=== PATIENT | female | born 1970 | race African-American/Black ===

== ENCOUNTER 2022-03-05 16:20 | Emergency (ER) | payer OTHER, SELFPAY ==
--- NOTE | ~2022-03-05 | XR_ITS ---
XR knee LT 3V DATE: 03/05/2022 16:49 INDICATION: Patient fell and twisted left knee. TECHNIQUE: AP, lateral, sunrise views COMPARISON: None FINDINGS: There is evidence of prominent distention of suprapatellar bursa suggesting knee joint effu maryan. Consider internal derangement. No fracture or dislocation, periosteal reaction or bone destruct ion is detected. There is minimal periarticular spurring of the patellofemoral and medial compartments. No radiopaque intra-articular loose body or chondrocalcinosis. IMPRESSION: Suggestion of prominent suprapatellar knee joint effusion, without evidence of fracture. Consider internal derangement. Mild osteoarthritis Reviewed, dictated and finalized at location B.
[2022-03-05 16:29] VITALS: BP 159/85; PULSE 85; RESP 18; TEMP 36.8; O2SAT 97
--- NOTE | 2022-03-05 18:38 | ED.LOWEXIN ---
HPI - Extremity Injury (Lower) General Chief Complaint: Extremity Injury, Lower Stated Complaint: left knee injury Time Seen by Provider: 03/05/22 18:01 Source: patient Mode of arrival: wheelchair Limitations: no limitations History of Present Illness HPI Narrative: This is a 51-year-old female that presents to the emergency department after a injury last night. Reports she fell off of a walkie at work. Reports an injury to the left knee. She has been unable to bear weight without pain since. She did not hit her head or lose consciousness. Denies decreased range of motion or numbness. Related Data Allergies Allergy/AdvReac Type Severity Reaction Status Date / Time No Known Allergies Allergy Verified 03/05/22 18:32 Review of Systems Review of Systems: CONSTITUTIONAL: Denies fever MUSCULOSKELETAL: Reports joint pain, and myalgia. NEUROLOGIC: Denies numbness, or weakness. All systems reviewed & are unremarkable except as noted in HPI and below PMFSH Past Medical History Medical History (Updated 03/05/22 @ 19:09 by Richa Ellington PA-C) No active medical problems Social History Social History (Updated 03/05/22 @ 19:06 by Richa Ellington PA-C) Smoking status: Never smoker Exam Narrative: GENERAL: Well-appearing, well-nourished, and in no acute distress. HEAD: Normocephalic, atraumatic. EYES: EOMI. EXTREMITIES: Normal range of motion. No edema or obvious deformity. Normal DP pulse. Normal sensation SKIN: Warm, dry, no rash. NEURO: No focal deficits. Alert and oriented x3. PSYCH: Normal mood and affect Course Vital Signs Vital signs: Vital Signs Temperature 98.3 F 03/05/22 16:29 Pulse Rate 85 03/05/22 16:29 Respiratory Rate 18 03/05/22 16:29 Blood Pressure 159/85 H 03/05/22 16:29 Pulse Oximetry 97 03/05/22 16:29 Oxygen Delivery Room Air 03/05/22 16:29 Temperature 98.3 F 03/05/22 16:29 Pulse Rate 85 03/05/22 16:29 Respiratory Rate 18 03/05/22 16:29 Blood Pressure 159/85 H 03/05/22 16:29 Pulse Oximetry 97 03/05/22 16:29 Oxygen Delivery Room Air 03/05/22 16:29 MDM - Extremity Injury (Lower) MDM Narrative Medical decision making narrative: Patient presents to the emergency department after an injury last night to her left knee. Patient is neurovascularly intact. Left knee x-ray shows a suprapatellar joint effusion without evidence of fracture. Patient was updated on case findings. Placed in a knee immobilizer and given crutches. Will be given orthopedics for follow-up. She was given warnings to return to the ER Imaging Data Radiologist's impression: ITS Impressions Knee X-Ray 03/05/22 16:53 IMPRESSION: Suggestion of prominent suprapatellar knee joint effusion, without evidence of fracture. Consider internal derangement. Mild osteoarthritis Critical Care Time Critical Care Time Critical Care Time: No Discharge Plan Discharge Clinical Impression: Acute internal derangement of knee Qualifiers: Laterality: left Qualified Code(s): M23.92 - Unspecified internal derangement of left knee Patient Disposition: Home, Self-Care Condition: Stable Instructions: Knee Sprain (ED) Additional Instructions: Return to the emergency department if you experience fever, redness and swelling of your leg, numbness, or any other symptoms that are concerning to you Wear knee immobilizer and use crutches. No weight on the affected leg. Ice and elevate extremity. Pain medication as needed and directed. Follow up with orthopedics for further care. Follow-up/Referrals: PHYSICIAN,CONDITIONING YARD SUPERVISOR [Primary Care Provider] - Lew Soria MD [Physician] - 3 Days
[2022-03-05] MEDS: KETOROLAC 30 MG/ML VIAL (*BKC) IM (18:42)
== END 2022-03-05 19:31 | disposition home or self-care (01) ==
PROVIDERS: Emergency Provider Emergency Medicine
DX: M23.92 Unspecified internal derangement of left knee (principal); S89.92XA Unspecified injury of left lower leg, initial encounter; M17.12 Unilateral primary osteoarthritis, left knee; W31.89XA Contact with other specified machinery, initial encounter
CPT/HCPCS: 73562; 96372; 99283; J1885

== ENCOUNTER 2022-07-09 15:32 | Emergency (ER) | payer SELFPAY ==
--- NOTE | ~2022-07-09 | XR_ITS ---
EXAMINATION: XR chest 1V portable DATE: 07/09/2022 15:59 INDICATION: Dizziness. TECHNIQUE: A single frontal view of the chest was obtained. COMPARISON: None. FINDINGS: The chest demonstrates clear lungs without pneumonia, pleural effusion, or pneumothorax. Th e heart size is normal. IMPRESSION: 1. No acute cardiopulmonary disease. Reviewed, dictated and finalized at location A. PORT APPLICATION EXAMINER
--- NOTE | ~2022-07-09 | CT_ITS ---
EXAMINATION: CT brain wo con DATE: 07/09/2022 16:09 INDICATION: Dizziness TECHNIQUE: Computed tomography (CT) of the head was performed without intravenous contrast. Sagittal and coronal reconstructions were performed. The mA was adjusted according to patient size. Iterative reconstruction technique was employed. The dose-length product was 605.33 mGy-cm. COMPARISON: None FINDINGS: No acute intracranial hemorrhage, acute infarction or abnormal extra axial fluid collection. Ventricl es are normal and symmetric. No mass/mass effect. The orbits, paranasal sinuses and mastoid air cells are normal. IMPRESSION: 1. Normal head CT. Reviewed, dictated and finalized at location B. RAL AISLE CASHIER IMPRESSION: 1. Normal head CT.
[2022-07-09 15:37] VITALS: BP 179/91; PULSE 97; RESP 16; TEMP 37.1; O2SAT 99
--- NOTE | 2022-07-09 15:43 | ECG_ITS ---
Measurements Intervals [place] Rate: 66 P: 44 MD: 170 QRS: 2 QRSD: 88 T: 20 QT: 374 QTc: 394 Interpretive Statements SINUS RHYTHM POSSIBLE LEFT ATRIAL ENLARGEMENT DELAYED PRECORDIAL R/S TRANSITION LOW QRS VOLTAGE IN PRECORDIAL LEADS BASELINE ARTIFACT- I, II, III, AVL BORDERLINE ECG NO PREVIOUS ECG AVAILABLE FOR COMPARISON Electronically Signed On 07-09-2022 17:30:47 TECHNICAL MARKETING CONSULTANT by Jair Nickerson D.O.
--- NOTE | 2022-07-09 16:16 | ED.GENADULT ---
HPI - General Adult General Chief complaint: Dizziness Stated complaint: dizzy Time Seen by Provider: 07/09/22 15:39 Source: RN notes reviewed History of Present Illness HPI narrative: Patient presents emergency department from home for dizziness. Patient states dizziness began 3 days ago. States the dizziness is described as a room spinning sensation that is worse whenever she tries to get up and better when she lays down she denies any numbness or tingling in the extremities she denies any vision changes, denies any chest pain shortness of breath abdominal pain nausea vomiting or any other symptoms. States she has not taken anything for the symptoms Related Data Allergies Allergy/AdvReac Type Severity Reaction Status Date / Time No Known Allergies Allergy Verified 03/05/22 18:32 Review of Systems Review of Systems: Gen.: Denies fevers or chills ENT: Denies congestion Respiratory: Denies shortness of breath or cough CV: Denies chest pain or palpitations GI: Denies abdominal pain nausea, emesis or diarrhea Musculoskeletal: Denies back pain or muscle pain Neuro: See HPI Skin: Denies rash Except as documented, all other systems reviewed and negative [facility] Past Medical History Medical History No active medical problems Social History Social History Smoking status: Never smoker Exam Narrative: APPEARANCE: No acute distress, nontoxic, resting in bed HEENT: Normocephalic, atraumatic, OMM, TMs clear bilaterally EYES: PERRL, EOMI RESPIRATORY: No respiratory distress, clear to auscultation bilaterally with no rhonchi wheezing or rales CARDIOVASCULAR: RRR s murmur ABDOMINAL: Soft, nontender, nondistended MUSCULOSKELETAL: Moves all extremities. No clubbing, cyanosis or edema. NEURO: A and O ?3, following commands, speech normal, cranial nerves II through XII grossly intact,muscle strength 5 out of 5 bilateral upper and lower extremities SKIN:: Warm, dry. Normal Color PSYCHIATRIC: Normal affect/mood Course Course Emergency Course: Patient states dizziness has resolved following meclizine able to get up and ambulate in the emergency department no dizziness Discussed with patient results of workup and diagnosis. Discussed need for follow-up with primary care, proper use of medication, and reasons to return to the emergency department. Patient understands and agrees to current treatment plan Vital Signs Vital signs: Vital Signs Temperature 98.7 F 07/09/22 15:37 Pulse Rate 97 07/09/22 15:37 Respiratory Rate 16 07/09/22 15:37 Blood Pressure 179/91 H 07/09/22 15:37 Pulse Oximetry 99 07/09/22 15:37 Temperature 98.7 F 07/09/22 15:37 Pulse Rate 70 07/09/22 17:15 Respiratory Rate 25 H 07/09/22 17:15 Blood Pressure 152/87 H 07/09/22 17:15 Pulse Oximetry 99 07/09/22 15:37 Medical Decision Making MDM Narrative Medical decision making narrative: Patient's vertigo is felt to be likely peripheral in origin. There is no diplopia, dysarthria or dysphagia. Patient's gait is stable and there are no cerebral deficits to exam. Risk factor for central causes of vertigo reviewed. Patient felt likely reasonable for continued outpatient management and risks are felt to outweigh benefits for further imaging studies at this time Vital Signs Vital Signs: Vital Signs Temperature 98.7 F 07/09/22 15:37 Pulse Rate 97 07/09/22 15:37 Respiratory Rate 16 07/09/22 15:37 Blood Pressure 179/91 H 07/09/22 15:37 Pulse Oximetry 99 07/09/22 15:37 Temperature 98.7 F 07/09/22 15:37 Pulse Rate 70 07/09/22 17:15 Respiratory Rate 25 H 07/09/22 17:15 Blood Pressure 152/87 H 07/09/22 17:15 Pulse Oximetry 99 07/09/22 15:37 Lab Data Lab results reviewed: Yes I reviewed the patient's lab results. 07/09/22 16:29 07/09/22 16:29 Labs: Lab Results
[2022-07-09] MEDS: MECLIZINE HCL 25 MG TABLET PO (16:31)
[2022-07-09] MEDS: SODIUM CHLORIDE 0.9% IV 1,000 ML 999 ML IV CONT (16:31)
[2022-07-09 16:35] LABS: Basophils Percent Auto 0.5 % (0.2-1.2); Eosinophils Absolute Auto 0.1 K/mm3 (0-0.3); Eosinophils Percent Auto 2.1 % (0-4.4); Hematocrit 35.4 % (37.0-47.0); Hemoglobin 11.4 g/dL (12.0-15.0); Immature Granulocyte Absolute 0.01 K/mm3 (0.00-0.031); Immature Granulocyte Percent A 0.2 % (0-0.5); Lymphocytes Absolute Auto 3.23 K/mm3 (0.9-3.2); Lymphocytes Percent Auto 55.2 % (18.3-44.2); Mean Corpuscular HGB Conc 32.2 g/dl (32-36); Mean Corpuscular Volume 90.1 fl (80-100); Mean Platelet Volume 9.7 fl (7.4-10.4); Monocytes Absolute Auto 0.4 K/mm3 (0.1-0.6); Monocytes Percent Auto 7.5 % (2.6-8.5); Neutrophils Percent Auto 34.5 % (45.5-73.1); Platelet Count Result 291 k/mm3 (150-375); Red Blood Count 3.93 M/mm3 (4.2-5.4); Red Cell Distribution Width 15.1 % (11.5-14.5); White Blood Count 5.9 K/mm3 (4.5-10.0)
[2022-07-09 16:45] VITALS: BP 159/95; PULSE 74; RESP 23
[2022-07-09 16:45] LABS: Alanine Aminotransferase 21 U/L (6-35); Albumin Level 3.6 g/dL (3.5-5.1); Alkaline Phosphatase 62 U/L (38-126); Anion Gap 6 mmol/L (8-16); Aspartate Amino Transferase 22 U/L (14-36); Bilirubin,Total 0.5 mg/dL (0.2-1.3); Blood Urea Nitrogen 8 mg/dL (7-17); Calcium 9.9 mg/dL (8.4-10.2); Carbon Dioxide 22 mmol/L (22-30); Chloride 112 mmol/L (98-107); Estimated CRCL calculation 96 ml/min; Estimated Glomerular Filt Rate > 60; Glucose 89 mg/dL (65-110); Potassium 3.8 mmol/L (3.4-5.0); Sodium 140 mmol/L (137-145)
[2022-07-09 16:56] LABS: Troponin I < 0.012 ng/mL (0.000-0.034)
[2022-07-09 17:00] VITALS: BP 166/91; PULSE 67; RESP 22
[2022-07-09 17:15] VITALS: BP 152/87; PULSE 70; RESP 25
--- NOTE | 2022-07-09 17:30 | PC.NURSE ---
pt ambulatory without difficulty to the bathroom. states dizziness has improved. gait steady.
--- NOTE | 2022-07-09 17:45 | PC.NURSE ---
pt ambulatory to bathroom without difficulty
[2022-07-09 17:48] LABS: Appearance Urine Slightly Cloudy (Clear); Bilirubin Urine Negative (Negative); Blood Urine 3+ (Negative); Color Urine Yellow (Yellow); Glucose Urine UA Negative (Negative); Ketones Urine Negative (Negative); Leukocyte Esterase Ur Negative LEU/UL (Negative); Nitrate Urine Negative (Negative); Protein Urine Trace mg/dL (Negative); pH Urine 6.5 (5.0-9.0)
[2022-07-09 17:52] LABS: Mucus Urine Rare /lpf; RBC Urine >75 /hpf (0-2); Squamous Epithelial Cell Urine Rare /hpf (Few); WBC Urine 0-3 /hpf
[2022-07-09 18:03] LABS: Add Urine Microscopic? YES
[2022-07-09 18:10] VITALS: BP 102/85; PULSE 73; RESP 16; O2SAT 99
== END 2022-07-09 18:10 | disposition home or self-care (01) ==
PROVIDERS: Emergency Provider Emergency Medicine
DX: H81.10 Benign paroxysmal vertigo, unspecified ear (principal); R94.31 Abnormal electrocardiogram [ECG] [EKG]
CPT/HCPCS: 36415; 70450; 71045; 80053; 81001; 84484; 85025; 93005; 96360; 99284; A9270; J7030

== ENCOUNTER 2023-06-08 00:16 | Day surgery (SDC) | payer OTHER, SELFPAY ==
[2023-05-30 14:29] VITALS: BMI 41.2
--- NOTE | 2023-05-30 14:30 | PC.NURSE ---
Report to the Outpatient Waiting Room, entrance under the green pavilion located off [facility], at time _0800_ on date _[id number]_. Planned Procedure Time: _1000_. Time changes happen often and if your time is changed the preop area will call you the afternoon before. - You and your visitor will be asked to self-screen and do not enter if you have any COVID symptoms. - A mask is optional within the hospital at this time. Patients may have clear liquids (water, carbonated beverages, clear teas, apple juice) until 3 hours prior to surgery with a maximum of 20 ounces. - No food from midnight until time of surgery Take the following medications with a SIP of water the morning of surgery: ___None DO NOT STOP ANY OF YOUR OTHER PRESCRIPTION MEDICATIONS PRIOR TO SURGERY ?EXCEPT THE FOLLOWING Medications to discontinue per physician None Date to take last dose Please no make-up, nail nigerian, hairspray, perfume, deodorant, or body powder the day of surgery. No jewelry (including any body piercings) or valuables the day of surgery, leave them at home. Please take a shower or bath the night before, or the morning of, surgery with an antibacterial soap. Wear comfortable, loose fitting clothing. - Jewelry must be removed prior to entering the operating room. Rings and piercings that are not removed may be cut off. - The hospital will not accept responsibility for valuables. - Please leave all valuables, including medications, at home the day of surgery. If you are going home after surgery, a licensed tow motor driver must drive you home. - NO public transportation without another adult if you receive anesthesia. - We recommend that an adult stay with you for 24 hours following discharge. - We also recommend that you do not drive, make important decision, drink alcoholic beverages, or take any drugs that were not prescribed by your health care provider for at least 24 hours after your discharge time. Follow any additional instructions given to you from your surgeon. If you or anyone in your household have experienced Covid symptoms in the past week, please notify your surgeon or the nurse liaison at the phone number below for possible testing. Telephone instructions given to __Homa_and asked if any additional questions and then verbalized understanding. Patient advised to call surgeon office or pre surgery nurse liaison [phone] if any additional questions.
--- NOTE | 2023-06-07 10:11 | P.HP_ITS ---
H&P: HPI History of Present Illness Date/Time: 06/07/23 10:11 Chief Complaint: Meniscal tear left knee. Narrative: Patient has what appears to be a meniscal tear left knee. It is the joint line she has catching locking and inability fully straighten knee she had an MRI scan that showed a bucket handle tear. But no surgery has been done to date. Review of Systems Musculoskeletal: Musculoskeletal: Reports arthralgias and Reports joint swelling PMFSH Past Medical History Medical History (Updated 04/13/23 @ 14:24 by Roberth Caraballo MD) No active medical problems Surgical History Surgical History (Updated 04/13/23 @ 13:52 by Carol Leung CMA) History of ankle surgery right History of History of hernia repair Family History Family History (Updated 04/13/23 @ 13:52 by Carol Leung CMA) Mother Diabetes mellitus Hypertension Father Diabetes mellitus Hypertension Social History Social History (Updated 04/13/23 @ 13:53 by Carol Leung CMA) Smoking status: Never smoker Alcohol intake: current Substance use: current Substance use type: marijuana Other substance usage details: rarely Lack of Transportation: No Lack of Food: Sometimes True Current Housing: I Do Not Have Housing Concerned About Future Housing: Decline to Answer Difficulty Paying Gas/Electric Bills: Decline to Answer Difficulty Paying for Meds: Decline to Answer Currently Unemployed: No Education: Associate Degree Difficulty w/ Childcare or Family Care: No Living arrangements: with family Occupation/Education: occupation 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 Neurologically she is intact. She walks with antalgic gait. Eyes: General: appearance normal, both eyes and all related structures Neck: Neck: supple Resp: Effort & Inspection: normal respiratory effort Cardio: Rate: regular rate Rhythm: regular rhythm Assessment and Plan Assessment and plan (1) Meniscus, lateral, bucket handle tear, old: Code(s): M23.269 - Derangement of other lateral meniscus due to old tear or injury, unspecified knee Status: Acute Assessment and Plan: Patient has meniscal tear the left. It appears to be a bucket-handle tear based on the previous MRI scan will proceed with arthroscopy partial me niscectomy procedures indicated. I told her that I can not guarantee any results and discussed risks benefits limitations and alternatives in detail. Hopefully the surgery will be helpful to her discussed. I told her that after a year of the actual a meniscus may look much different than the MRI scan
[2023-06-08] VITALS (9 sets, daily range): BP systolic 108–144; BP diastolic 61–82; PULSE 56–69; RESP 14–18; TEMP 36.6–36.7; O2SAT 96–100
--- NOTE | 2023-06-08 06:50 | WPDHPUPDATE1 ---
History and Physical Update Update Date/Time: 06/08/23 06:50 History and Physical has been reviewed, including an updated exam of the patient. There are NO changes in the patient's condition. Risks, benefits, and alternatives have been discussed and questions answered. Patient agrees to proceed with procedure.
[2023-06-08] MEDS: ACETAMINOPHEN 500 MG TABLET 1000 MG PO (08:05)
--- NOTE | 2023-06-08 08:27 | P.PNAN_ITS ---
Anes - Initial Pre Proc Eval Procedure: Operation Date: 06/08/23 10:00 Proposed Procedures p Left Knee Arthroscopy - Roberth Caraballo MD Date/Time: 06/08/23 08:27 Surgeon: Roberth Caraballo MD Pre Op Diagnosis: Lt Knee Lat Meniscus Tear Patient Data Age: 52 Gender: F Height: 1.68 m Weight: 123.3 kg Last Vital Signs Temp 36.6 C 06/08/23 08:17 Pulse 65 06/08/23 08:17 Resp 18 06/08/23 08:17 BP 144/80 H 06/08/23 08:17 Pulse Ox 96 06/08/23 08:17 O2 Del Method Room Air 06/08/23 08:17 Allergies Allergy/AdvReac Type Severity Reaction Status Date / Time No Known Allergies Allergy Verified 06/08/23 08:03 Home Medications Medication Instructions Recorded Confirmed Type No Home Medications 05/30/23 05/30/23 History Patient hx anesthesia problems: none Family hx anesthesia problems: none Results Review: All pre-operative results and documents have been reviewed as part of the pre- operative evaluation. [facility] Past Medical History Medical History No active medical problems Surgical History Surgical History History of ankle surgery right History of History of hernia repair Family History Family History Mother Diabetes mellitus Hypertension Father Diabetes mellitus Hypertension Social History Social History Smoking status: Never smoker Alcohol intake: current Substance use: current Substance use type: marijuana Other substance usage details: rarely Lack of Transportation: No Lack of Food: Sometimes True Current Housing: I Do Not Have Housing Concerned About Future Housing: Decline to Answer Difficulty Paying Gas/Electric Bills: Decline to Answer Difficulty Paying for Meds: Decline to Answer Currently Unemployed: No Education: Associate Degree Difficulty w/ Childcare or Family Care: No Living arrangements: with family Occupation/Education: occupation 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 Informed Consent: The patient's anesthetic plan and its attendant risks and benefits were discussed with the patient/family/POA. Questions were solicited and answers provided to the satisfaction of the patient/family/POA.
[2023-06-08] MEDS: LACTATED RINGERS 1,000 ML 30 ML IV CONT ×2 (08:35→11:01)
[2023-06-08] MEDS: KETOROLAC 15 MG/ML VIAL (*BKC) IV PUSH (08:45)
[2023-06-08] MEDS: ceFAZolin 3 GM/D5W 100 ML 100 ML IVPB (10:03)
[2023-06-08] MEDS: LIDO 1%/EPINEPHRINE 1:100,000 20 ML VIAL INFILTRATE (10:31)
--- NOTE | 2023-06-08 10:54 | W.PM.PROC2 ---
Procedure Note - Detailed Date of Procedure 06/08/23 Pre-op Diagnosis Lt Knee Lat Meniscus Tear, Bucket handle type Post-op Diagnosis Same Procedure Performed LEFT knee arthroscopy with partial meniscetomy Surgeon Roberth Caraballo MD Anesthesia General Indications Locking, catching and pain Left knee Description of Procedure Patient brought to operating room # 7. An anesthetic was administered. The knee was steriley prepped and draped in the usual manner. Standard portals were used. Superior medial portal was used for the outflow cannula, inferior lateral portal was used for the scope, inferior medial portal was used for the instruments. Arthroscopy was performed, the patellar femoral joint degenerative changes. The medial compartment showed fraying. The lateral compartment showed an old bucket handle tear. The ACL was intact. Using baskets and willem the meniscal tear was trimmed back to a stable base so the nothing further could be pulled into the joint. She had grade 2-3 changes from the tear laterally. Any loose or delaminated fragments were gently trimmed to a stable base. At this point the instruments were withdrawn, sutures placed and patient left the operating room in satisfactory condition. Estimated Blood Loss 20 Drains No Packing No Pathology None sent Complications No immediate complications Condition Stable Disposition PACU [facility] Billing Surgery - Charge Forward: Surgery Billing (Partial Lateral menisectomy [id number])
[2023-06-08] MEDS: fentaNYL CITRATE INJ (*CRX) 100 MCG/2 ML VIAL 25 MCG IV PUSH ×4 (11:26→11:34)
[2023-06-08] MEDS: oxyCODONE HCL (*CRX) 5 MG TAB IR PO (11:51)
== END 2023-06-08 13:02 | disposition home or self-care (01) ==
PROVIDERS: Visit Provider Orthopaedic Surgery
PROC: (CPT 29870; principal; 2023-06-08 10:00)
DX: M23.262 Derangement of other lateral meniscus due to old tear or injury, left knee (principal); F12.90 Cannabis use, unspecified, uncomplicated; E66.01 Morbid (severe) obesity due to excess calories; Z68.41 Body mass index [BMI] 40.0-44.9, adult
CPT/HCPCS: 29881; A9270; J0690; J1100; J1885; J2250; J2405; J2704; J3010; J7120